=== PATIENT | female | born 2000 | race Caucasian/White ===

== ENCOUNTER 2022-11-26 16:13 | Inpatient (IN) | payer BC ==
[2022-11-26] MEDS ORDERED: Ondansetron 4 MG Tab.DIS PO PRN (17:12)
[2022-11-26] MEDS ORDERED: Lidocaine 1% 50 ML MDV INJECT PRN (17:12)
[2022-11-26] MEDS ORDERED: Misoprostol 200 MCG Tab PO PRN (17:12)
[2022-11-26] MEDS ORDERED: Tranexamic Acid 1,000 MG in Sodium Chloride 0.9% 100 ML IV PRN (17:12)
[2022-11-26] MEDS ORDERED: Sodium Chloride 0.9% 20 ML SDV IV PRN (17:12)
[2022-11-26] MEDS ORDERED: Sodium Chloride 0.9% 2.5 ML Syringe FLUSH PRN (17:12)
[2022-11-26] MEDS ORDERED: Water For Irrigation,Sterile 1,000 ML Container IRR PRN (17:12)
[2022-11-26] MEDS ORDERED: Methylergonovine 0.2 MG/1 ML Amp IM PRN (17:12)
[2022-11-26] MEDS ORDERED: Carboprost Tromethamine 250 MCG/1 mL Vial IM PRN (17:12)
[2022-11-26] MEDS ORDERED: Sodium Chloride 0.9% 10 ML Syringe FLUSH PRN (17:12)
[2022-11-26] MEDS ORDERED: Butorphanol 1 MG/ML SDV IVPUSH PRN (17:12)
[2022-11-26] MEDS ORDERED: Misoprostol 25 MCG (1/4 of 100 MCG) Tab VAG PRN (17:15)
[2022-11-26] MEDS ORDERED: Terbutaline 1 MG/ML SDV SUBCUT PRN (17:15)
[2022-11-26] MEDS ORDERED: Oxytocin/0.9 % Sodium Chloride 30 UNIT/500 ML BAG IV SCH ×2 (17:15)
[2022-11-26 17:23] LABS: HEMATOCRIT 37.9 % (36.0-46.0); HEMOGLOBIN 12.6 g/dL (12.0-16.0); MEAN CORPUSCULAR HEMOGLOBIN 28.8 pg (27.0-32.0); MEAN CORPUSCULAR HGB CONC 33.2 g/dL (31.0-37.0); MEAN CORPUSCULAR VOLUME 86.7 fL (80.0-98.0); MEAN PLATELET VOLUME 11.6 fL (7.40-12.00); RED BLOOD CELL COUNT 4.37 M/uL (4.30-5.90); WHITE BLOOD CELL COUNT,WBC 7.69 K/uL (4.0-11.0)
[2022-11-26] MEDS: Misoprostol 25 MCG (1/4 of 100 MCG) Tab VAG PRN (21:35)
[2022-11-26] MEDS: Lactated Ringers 1,000 ML IV SCH (23:00)
[2022-11-27] MEDS: Misoprostol 25 MCG (1/4 of 100 MCG) Tab VAG PRN ×2 (01:37→05:40)
[2022-11-27] MEDS: Lactated Ringers 1,000 ML IV SCH ×3 (05:39→13:27)
[2022-11-27] MEDS ORDERED: Bupivacaine 0.5% 10 ML SDV ONE (10:32)
[2022-11-27] MEDS ORDERED: Ropivacaine/PF 400 MG/200 ML PCA ONE (10:32)
[2022-11-27 10:37] LABS: APPEARANCE,URINE HAZY; BILIRUBIN,URINE NEGATIVE (NEGATIVE); COLOR,URINE YELLOW; GLUCOSE,URINE NEGATIVE (NEGATIVE); KETONES,URINE 15 mg/dL (NEGATIVE); LEUKOCYTE ESTERASE,URINE NEGATIVE (NEGATIVE); NITRITE,URINE NEGATIVE (NEGATIVE); OCCULT BLOOD,URINE SMALL (NEGATIVE); PROTEIN,URINE NEGATIVE (NEGATIVE); UROBILINOGEN,URINE 0.2 EU/dL (<2.0)
[2022-11-27 11:17] LABS: A/G RATIO 0.8 (0.9-1.6); ALBUMIN 2.9 g/dL (3.4-5.0); BILIRUBIN TOTAL 0.3 mg/dL (0.2-1.0); CARBON DIOXIDE,CO2 19.9 mmol/L (21.0-32.0); CREATININE 0.8 mg/dL (0.6-1.0); EST CRCL DRUG DOSING (CG) 110.33 mL/min; PROTEIN TOTAL,TP 6.7 g/dL (6.4-8.2); URIC ACID 5.6 mg/dL (2.6-7.2)
[2022-11-27] MEDS ORDERED: Bisacodyl 10 MG Supp RECTAL PRN (19:09)
[2022-11-27] MEDS ORDERED: Tranexamic Acid 1,000 MG in Sodium Chloride 0.9% 100 ML IV PRN (19:09)
[2022-11-27] MEDS ORDERED: Lanolin 100% Cream 7 GM Tube TOP PRN (19:09)
[2022-11-27] MEDS ORDERED: Witch Hazel Medicated Pads 40/Jar TOP PRN (19:09)
[2022-11-27] MEDS ORDERED: Benzocaine/Menthol 20%-0.5% Spray 78 GM Cannister TOP PRN (19:09)
[2022-11-27] MEDS ORDERED: Acetaminophen 500 MG Tab PO PRN (19:09)
[2022-11-27] MEDS ORDERED: Ibuprofen 400 MG Tab PO PRN (19:09)
[2022-11-27 19:52] LABS: PH,UMBILICAL ARTERIAL 7.23 (7.18-7.38); PH,UMBILICAL VENOUS 7.288 (7.25-7.45)
[2022-11-27] MEDS: Ibuprofen 800 MG Tab PO PRN (22:31)
[2022-11-27] MEDS: Acetaminophen 500 MG Tab PO PRN (22:33)
[2022-11-28] MEDS: Ibuprofen 800 MG Tab PO PRN ×3 (05:47→22:15)
[2022-11-28 06:23] LABS: HEMATOCRIT 35.1 % (36.0-46.0); HEMOGLOBIN 11.6 g/dL (12.0-16.0)
[2022-11-28] MEDS: Acetaminophen 500 MG Tab PO PRN ×2 (08:47→22:15)
[2022-11-28] MEDS: Docusate Sodium 100 MG Cap PO PRN ×2 (08:47→22:16)
[2022-11-29] MEDS: Ibuprofen 800 MG Tab PO PRN (08:05)
== END 2022-11-29 12:45 | disposition home or self-care (01) | DRG 560 ==
LOC: MW.OB 16:13 → OBSVTOIN 11-27 18:02 → MW.OB 11-27 23:01
PROVIDERS: ADMIT Obstetrics & Gynecology; ATTEND Obstetrics & Gynecology
PROC: 10E0XZZ Delivery of Products of Conception, External Approach (ICD-10-PCS; principal; 2022-11-27)
PROC: 3E0R3BZ Introduction of Anesthetic Agent into Spinal Canal, Percutaneous Approach (ICD-10-PCS; 2022-11-27)
PROC: 00HU33Z Insertion of Infusion Device into Spinal Canal, Percutaneous Approach (ICD-10-PCS; 2022-11-27)
PROC: 3E0P7VZ Introduction of Hormone into Female Reproductive, Via Natural or Artificial Opening (ICD-10-PCS; 2022-11-27)
PROC: 3E033VJ Introduction of Other Hormone into Peripheral Vein, Percutaneous Approach (ICD-10-PCS; 2022-11-27)
PROC: 0KQM0ZZ Repair Perineum Muscle, Open Approach (ICD-10-PCS; 2022-11-27)
DX: O48.0 Post-term pregnancy (principal); O99.214 Obesity complicating childbirth; O70.1 Second degree perineal laceration during delivery; O42.02 Full-term premature rupture of membranes, onset of labor within 24 hours of rupture; Z90.49 Acquired absence of other specified parts of digestive tract; Z98.890 Other specified postprocedural states; Z86.16 Personal history of COVID-19; Z3A.40 40 weeks gestation of pregnancy; Z37.0 Single live birth; O76 Abnormality in fetal heart rate and rhythm complicating labor and delivery
CPT/HCPCS: 01967; 36415; 51702; 59025; 59409; 80053; 81003; 82803; 84550; 85014; 85018; 85027; 85460; 86592; 86850; 86900; 86901; A9270-GY; J2590; J2790; J2795; J3490; J7120

== ENCOUNTER 2024-10-16 09:15 | Inpatient (IN) | payer BC ==
[2024-10-16] MEDS ORDERED: Terbutaline 1 MG/ML SDV SUBCUT PRN (12:19)
[2024-10-16] MEDS ORDERED: Phenylephrine HCl In 0.9% NaCl 1 MG/10 ML Syringe IVPUSH PRN (12:23)
[2024-10-16] MEDS ORDERED: ePHEDrine 50 MG/ML SDV IVPUSH PRN (12:23)
[2024-10-16] MEDS ORDERED: dexmedeTOMIDine HCl 200 MCG/2 ML SDV EPIDUR SCH (12:30)
[2024-10-16] MEDS ORDERED: Methylergonovine 0.2 MG/1 ML Amp IM PRN (12:40)
[2024-10-16] MEDS ORDERED: Misoprostol 200 MCG Tab PO PRN (12:40)
[2024-10-16] MEDS ORDERED: Carboprost Tromethamine 250 MCG/1 mL Vial IM PRN (12:40)
[2024-10-16] MEDS ORDERED: Sodium Chloride 0.9% 20 ML SDV IV PRN (12:40)
[2024-10-16] MEDS ORDERED: Butorphanol 1 MG/ML SDV IVPUSH PRN (12:40)
[2024-10-16] MEDS ORDERED: Sodium Chloride 0.9% 2.5 ML Syringe FLUSH PRN (12:40)
[2024-10-16] MEDS ORDERED: Water For Irrigation,Sterile 1,000 ML Container IRR PRN (12:40)
[2024-10-16] MEDS ORDERED: Lidocaine 1% 50 ML MDV INJECT PRN (12:40)
[2024-10-16] MEDS ORDERED: Sodium Chloride 0.9% 10 ML Syringe FLUSH PRN (12:40)
[2024-10-16] MEDS ORDERED: Oxytocin/0.9 % Sodium Chloride 30 UNIT/500 ML BAG IV SCH (12:45)
[2024-10-16] MEDS: Lactated Ringers 1,000 ML IV SCH (12:45)
[2024-10-16] MEDS ORDERED: Ondansetron 4 MG/2 ML SDV IVPUSH PRN (12:51)
[2024-10-16 13:14] LABS: HEMATOCRIT 41.2 % (37.0-47.0); HEMOGLOBIN 14.2 g/dL (12.0-16.0); MEAN CORPUSCULAR HEMOGLOBIN 29.3 pg (28.0-32.0); MEAN CORPUSCULAR HGB CONC 34.5 g/dL (32.0-36.0); MEAN CORPUSCULAR VOLUME 85.1 fL (83.0-99.0); MEAN PLATELET VOLUME 11.4 fL (9.4-12.3); PLATELET COUNT,PLT 217 K/uL (150-400); RED BLOOD CELL COUNT 4.84 M/uL (4.10-5.30); WHITE BLOOD CELL COUNT,WBC 11.93 K/uL (3.9-11.3)
[2024-10-16] MEDS: Ropivacaine HCl/PF 400 MG in Premix Bag 1 BAG EPIDUR SCH (15:37)
[2024-10-16] MEDS: Oxytocin/0.9 % Sodium Chloride 30 UNIT/500 ML BAG IV SCH (16:56)
[2024-10-16] MEDS ORDERED: Benzocaine/Menthol 20%-0.5% Spray 78 GM Cannister TOP PRN (18:32)
[2024-10-16] MEDS ORDERED: Docusate Sodium 100 MG Cap PO PRN (18:32)
[2024-10-16] MEDS ORDERED: Lanolin 100% Cream 7 GM Tube TOP PRN (18:32)
[2024-10-16] MEDS: Witch Hazel Medicated Pads 40/Jar TOP PRN (21:11)
[2024-10-16] MEDS: Ibuprofen 800 MG Tab PO PRN (21:11)
[2024-10-16] MEDS: Acetaminophen 500 MG Tab PO PRN (22:24)
[2024-10-18] MEDS ORDERED: Prenatal Multivitamin with Calcium/Folic Acid/Iron Tab PO SCH (09:00)
== END 2024-10-17 19:00 | disposition home or self-care (01) | DRG 807 ==
LOC: MW.OBCHECK 09:15 → OBSVTOIN 09:30 → MW.OB 09:30 → MERGE 09:30 → MW.OB 10:46
PROVIDERS: ADMIT Obstetrics & Gynecology Gynecology; ATTEND Obstetrics & Gynecology Gynecology
PROC: 10D07Z6 Extraction of Products of Conception, Vacuum, Via Natural or Artificial Opening (ICD-10-PCS; principal; 2024-10-16)
PROC: 10907ZC Drainage of Amniotic Fluid, Therapeutic from Products of Conception, Via Natural or Artificial Opening (ICD-10-PCS; 2024-10-16)
PROC: 3E0R3BZ Introduction of Anesthetic Agent into Spinal Canal, Percutaneous Approach (ICD-10-PCS; 2024-10-16)
PROC: 00HU33Z Insertion of Infusion Device into Spinal Canal, Percutaneous Approach (ICD-10-PCS; 2024-10-16)
PROC: 3E0334Z Introduction of Serum, Toxoid and Vaccine into Peripheral Vein, Percutaneous Approach (ICD-10-PCS; 2024-10-17)
DX: O99.214 Obesity complicating childbirth (principal); Z37.0 Single live birth; O36.63X0 Maternal care for excessive fetal growth, third trimester, not applicable or unspecified; O77.0 Labor and delivery complicated by meconium in amniotic fluid; O26.893 Other specified pregnancy related conditions, third trimester; Z67.41 Type O blood, Rh negative; Z3A.39 39 weeks gestation of pregnancy; Z90.89 Acquired absence of other organs
CPT/HCPCS: 01967; 36415; 36430; 51702; 59025; 59409; 85027; 85460; 86592; 86850; 86900; 86901; A9270-GY; J2590; J2791; J2795; J7120